=== PATIENT | male | born 1970 | race African-American/Black ===

== ENCOUNTER 2018-06-06 12:15 | Emergency (ER) | payer SELFPAY ==
[~2018-06-06] VITALS: Ht 185.4 cm; Wt 102.5 kg
--- NOTE | 2018-06-06 12:50 | NUR ---
BIB [facility] C/O BACK PAIN. PT STS WORK RELATED INJURY FROM MOVING FURNITURES. VSS. NAD NOTED @ THIS TIME. PT SEEN & EVAL'D BY DR. GONZALEZ.
[2018-06-06 12:58] VITALS: BP 118/70
== END 2018-06-06 13:01 | disposition home or self-care (01) ==
LOC: ER 12:16
DX: M54.5 Low back pain (principal); Z88.0 Allergy status to penicillin
CPT/HCPCS: 99282; A4606; Z7610